=== PATIENT | male | born 1950 | race African-American/Black ===

== ENCOUNTER 2016-12-06 10:07 | Emergency (ER) | payer MEDICARE ==
[2016-12-06 10:14] VITALS: BP 137/80
[2016-12-06] MEDS ORDERED: IBUPROFEN 600 MG TABLET PO ONE (10:25)
[2016-12-06] MEDS ORDERED: GUAIFENESIN 600 MG TABLET.SA PO ONE (10:25)
[2016-12-06] MEDS ORDERED: FLUTICASONE NASAL SPRAY 50 MCG/SPRY 120 SPRAY/16 GM NASL ONE (10:25)
[2016-12-06] MEDS ORDERED: PSEUDOEPHEDRINE HCL 30 MG TABLET PO ONE (10:25)
[2016-12-06] MEDS ORDERED: LORATADINE 10 MG TABLET PO ONE (10:25)
--- NOTE | 2016-12-06 10:32 | ER Document Report ---
ED Respiratory Problem - General Chief Complaint: Congestion Stated Complaint: SINUS PROBLEM Time Seen by Provider: 12/06/16 10:17 Mode of Arrival: Ambulatory Information source: Patient Notes: 66-year-old male presents to ED for cough and cold symptoms with a nasal congestion and drainage and pressure for a week. TRAVEL OUTSIDE OF THE [place] IN LAST 30 DAYS: No - HPI Patient complains to provider of: Cough, Short of breath Onset: Last week Duration: Continuous Initiating Event: URI Quality of pain: Pressure Severity: Moderate Pain Level: 3 Cough: Nonproductive Sputum amount: None Associated symptoms: Cough - Occasional, PND, Sinus pain/pressure Similar symptoms previously: Yes Recently seen / treated by doctor: No - Related Data Allergies/Adverse Reactions: No Known Allergies Allergy (Verified 12/06/16 10:28) Past Medical History - General Information source: Patient - Social History Smoking Status: Never Smoker Cigarette use (# per day): No Chew tobacco use (# tins/day): No Smoking Education Provided: No Frequency of alcohol use: None Drug Abuse: None Occupation: Retired Lives with: Alone Family History: COPD, CVA, DM, Hyperlipidemia, Hypertension. denies: Arthritis , CAD, Malignancy, Thyroid Disfunction Patient has suicidal ideation: No Patient has homicidal ideation: No - Past Medical History Cardiac Medical History: Reports: None Pulmonary Medical History: Reports: Hx Bronchitis, Hx Pneumonia EENT Medical History: Reports: Nose Neurological Medical History: Reports: None Endocrine Medical History: Reports: None Renal/ Medical History: Reports: None Malignancy Medical History: Reports None GI Medical History: Reports: None Musculoskeltal Medical History: Reports None Skin Medical History: Reports None Psychiatric Medical History: Reports: None Traumatic Medical History: Reports: None Infectious Medical History: Reports: None Past Surgical History: Reports: Other - sinus surgery Review of Systems - Review of Systems Constitutional: No symptoms reported EENT: Nose discharge, Sinus pressure, Sinus discharge Cardiovascular: No symptoms reported Respiratory: Cough - occasional Gastrointestinal: No symptoms reported Genitourinary: No symptoms reported Male Genitourinary: No symptoms reported Musculoskeletal: No symptoms reported Skin: No symptoms reported Hematologic/Lymphatic: No symptoms reported Neurological/Psychological: No symptoms reported -: Yes All other systems reviewed and negative Physical Exam - Vital signs Vitals: Temp Pulse Resp BP Pulse Ox 97.5 F 52 L 18 137/80 H 95 12/06/16 10:12 12/06/16 10:12 12/06/16 10:12 12/06/16 10:12 12/06/16 10:12 Interpretation: Normal - General General appearance: Appears well, Alert - HEENT Head: Normocephalic, Atraumatic Eyes: Normal Pupils: PERRL Ears: Normal External canal: Normal Tympanic membrane: Normal Sinus: Frontal, Tenderness Nasal: Purulent discharge, Swelling Mouth/Lips: Normal Mucous membranes: Normal Pharynx: Post nasal drainage Neck: Normal - Respiratory Respiratory status: No respiratory distress Chest status: Nontender Breath sounds: Normal Chest palpation: Normal - Cardiovascular Rhythm: Regular Heart sounds: Normal auscultation Murmur: No - Abdominal Inspection: Normal Distension: No distension Bowel sounds: Normal Tenderness: Nontender Organomegaly: No organomegaly - Back Back: Normal, Nontender - Extremities General upper extremity: Normal inspection, Nontender, Normal color, Normal ROM , Normal temperature General lower extremity: Normal inspection, Nontender, Normal color, Normal ROM , Normal temperature, Normal weight bearing. No: Jennifer's sign - Neurological Neuro grossly intact: Yes Cognition: Normal Orientation: AAOx4 [place] Coma Scale Eye Opening: Spontaneous [place] Coma Scale Verbal: Oriented [place] Coma Scale Motor: Obeys Commands [place] Coma Scale Total: 15 Speech: Normal Motor strength normal: LUE, RUE, LLE, RLE Sensory: Normal - Psychological Associated symptoms: Normal affect, Normal mood - Skin Skin Temperature: Warm Skin Moisture: Dry Skin Color: Normal Course - Re-evaluation Re-evalutation: 12/06/16 11:21 Patient treated with Claritin and Sudafed and Mucinex and ibuprofen and Flonase. Patient instructed to see how he feels after these and use these at home. Patient given a list of what he was received to enable him to take the same medication if this helps him. Patient instructed to follow-up with primary doctor. - Vital Signs Vital signs: Temp Pulse Resp BP Pulse Ox 97.5 F 52 L 18 137/80 H 95 12/06/16 10:12 12/06/16 10:12 12/06/16 10:12 12/06/16 10:12 12/06/16 10:12 Discharge - Discharge Clinical Impression: URI (upper respiratory infection) Qualifiers: URI type: unspecified URI Qualified Code(s): J06.9 - Acute upper respiratory infection, unspecified Condition: Stable Disposition: HOME, SELF-CARE Instructions: Family Physicians / Practices Additional Instructions: UPPER RESPIRATORY ILLNESS: You have a viral infection of the respiratory passages -- a "cold." This common infection causes nasal congestion, drainage, and often sore throat and cough. It is highly contagious. The disease usually lasts about 10 to 14 days. There is no "cure" for the viral infection -- it must run its course. If there is a complication, such as bacterial infection in the nose, sinuses, middle ear, or bronchial tubes, antibiotics may be required. The antibiotics won't affect the virus. Drink plenty of fluids. A humidifier may help. An expectorant medication or decongestant may make you more comfortable. Use acetaminophen or ibuprofen for fever or aches. See the doctor if fever persists over two days, if there is any significant worsening of your symptoms, or if you simply fail to improve as expected. I gave you a list of the medications I gave you in the ed. DECONGESTANT MEDICATION: A decongestant medicine has been suggested. Often this medicine is combined in the same tablet with an antihistamine or expectorant. This type of medicine is helpful in treating a bad cold or sinus condition, as well as in treatment of the nasal congestion of hay fever. It is not of much benefit for lung infections. Decongestant medicines are related to stimulants. They can cause an increase in blood pressure and heart rate. Persons with heart disease and high blood pressure should not take decongestants without discussing this with the physician. If you develop palpitations, chest pain, headache, or tremors, stop the medicine and consult your physician. COUGH-SUPPRESSANT & EXPECTORANT MEDICATION: You are to use a cough medication as needed for relief of symptoms. This medicine is a combination of an expectorant (to make the mucous thinner and more easily "coughed up") and a cough suppressant (to reduce the frequency of coughing). The cough-suppressant medicine is related to narcotics. You may experience mild nausea and sleepiness. Some patients who are very sensitive to narcotics may have stomach pain from this medicine. Taking the medicine with food reduces these side effects. Do not drive or work with machinery until you know how this medicine affects you. The expectorant should have no side effects. Iodine-containing expectorants (such as organidin) should not be taken by persons with active thyroid disease unless approved by your doctor. Call the doctor if you develop shortness of breath, hives, rash, itching, lightheadedness, or severe nausea and vomiting. USE OF ACETAMINOPHEN (Tylenol): Acetaminophen may be taken for pain relief or fever control. It's much safer than aspirin, offering a wider range of "safe" dosages. It is safe during . Some brand names are Tylenol, Panadol, Datril, Anacin 3, Tempra, and Liquiprin. Acetaminophen can be repeated every four hours. The following are maximum recommended dosages: >89 pounds or adults 650 mg to 900 mg Acetaminophen can be repeated every four hours. Maximum dose not to exceed 4000 mg a day. FOLLOW-UP CARE: If you have been referred to a physician for follow-up care, call the physician s office for an appointment as you were instructed or within the next two days. If you experience worsening or a significant change in your symptoms, notify the physician immediately or return to the Emergency Department at any time for re-evaluation. Forms: Elevated Blood Pressure
== END 2016-12-06 11:00 | disposition home or self-care (01) ==
LOC: ER 10:07
DX: J06.9 Acute upper respiratory infection, unspecified (principal); R05 Cough; R09.81 Nasal congestion; R09.82 Postnasal drip; Z87.01 Personal history of pneumonia (recurrent)
CPT/HCPCS: 99283; A9270 ×5

== ENCOUNTER 2016-12-09 03:21 | Emergency (ER) | payer SELFPAY ==
[2016-12-09] MEDS ORDERED: AMOXICILLIN TR/POT CLAVULANATE 500-125 MG TAB PO ONE (04:15)
[2016-12-09] MEDS ORDERED: AMOXICILLIN TRIHYDRATE 500 MG CAPSULE PO ONE (04:16)
--- NOTE | 2016-12-09 04:19 | ER Document Report ---
HPI - HPI Patient complains to provider of: sinus congestion Pain Level: Denies Context: Patient is a 66 year old male that reports a week of worsening cold symptoms and now progressive sinus congestion and sinus pressure. He denies fever, cough , shortness of breath. He reports a sore throat. He states he gets an annual sinus infection and usually requires antibiotics. Already on claratin, flonase. Denies any daily medications or known medical problems other than sinus surgery many years ago. - DERM Skin Color: Normal Past Medical History - General Information source: Patient - Social History Smoking Status: Never Smoker Frequency of alcohol use: None Drug Abuse: None Lives with: Family Family History: COPD, CVA, DM, Hyperlipidemia, Hypertension. denies: Arthritis , CAD, Malignancy, Thyroid Disfunction Patient has suicidal ideation: No Patient has homicidal ideation: No Pulmonary Medical History: Reports: Hx Bronchitis, Hx Pneumonia Renal/ Medical History: Denies: Hx Peritoneal Dialysis Past Surgical History: Reports: Other - sinus surgery - Immunizations Immunizations up to date: Yes Hx Diphtheria, Pertussis, Tetanus Vaccination: Yes Vertical Provider Document - CONSTITUTIONAL General Appearance: WD/WN, No Apparent Distress - INFECTION CONTROL TRAVEL OUTSIDE OF THE [place] IN LAST 30 DAYS: No - HEENT HEENT: Atraumatic, Normocephalic. negative: Normal ENT Exam - Sinus congestion , minimal maxillary sinus tenderness, congested nasal passages, very mildly erythematous throat, unremarkable ENT exam otherwise - NECK Neck: Normal Inspection - RESPIRATORY Respiratory: Breath Sounds Normal, No Respiratory Distress O2 Sat by Pulse Oximetry: 95 - CARDIOVASCULAR Cardiovascular: Regular Rate, Regular Rhythm - GI/ABDOMEN Gastrointestinal: Abdomen Soft, Abdomen Non-Tender - MUSCULOSKELETAL/EXTREMETIES Musculoskeletal/Extremeties: MAEW, FROM, Non-Tender - NEURO Level of Consciousness: Awake, Alert, Appropriate - DERM Integumentary: Warm, Dry, No Rash Course - Re-evaluation Re-evalutation: Patient with minimal sinus tenderness. He is well-appearing, sounds congested, has clear lungs, conversational and making jokes. Mildly hypertensive, improved on repeat. No fever, no concerning deficits or signs of distress. - Vital Signs Vital signs: Temp Pulse Resp BP Pulse Ox 97.4 F 59 L 22 H 178/87 H 95 12/09/16 03:23 12/09/16 03:23 12/09/16 03:23 12/09/16 03:23 12/09/16 03:23 Discharge - Discharge Clinical Impression: Sinus pressure, Sinus congestion Pharyngitis Qualifiers: Pharyngitis/tonsillitis etiology: unspecified etiology Qualified Code(s): J02.9 - Acute pharyngitis, unspecified Condition: Stable Disposition: HOME, SELF-CARE Additional Instructions: Your examination is consistent with a sinus infection. Take Augmentin antibiotic as directed. I also recommend continuing your Claritin and/or Flonase. Follow-up with primary care for additional management. Return to the emergency department for any concerning or worsening symptoms including headache , fever, vomiting, difficulty breathing, or any other concerning symptoms. Prescriptions: Amox Tr/Potassium Clavulanate [Augmentin 875-125 Tablet] 1 tab PO BID 7 Days tablet Referrals: CHITO GUAJARDO MD [Primary Care Provider] - Follow up as needed
[2016-12-09 04:46] VITALS: BP 148/92
== END 2016-12-09 04:25 | disposition home or self-care (01) ==
LOC: ER 03:21
DX: R09.81 Nasal congestion (principal); J02.9 Acute pharyngitis, unspecified; Z98.890 Other specified postprocedural states
CPT/HCPCS: 99283

== ENCOUNTER 2016-12-15 03:11 | Emergency (ER) | payer SELFPAY ==
[2016-12-15 03:20] VITALS: BP 145/82
--- NOTE | 2016-12-15 03:28 | ER Document Report ---
HPI - HPI Patient complains to provider of: clogged nose Onset: Other - 3 weeks Onset/Duration: Persistent, Worse Pain Level: 3 Context: 66-year-old non-smoker is complaining of nasal congestion and aguilar sinus pain for 3 weeks with sore throat. When he blows his nose green mucus comes out. He was given Augmentin on the and Flonase. He thought the Augmentin was helping to begin with. He had previous ENT surgery for the same problem about 10 years ago. No chest pain or shortness of breath. No fever. He came into the emergency room because he is unable to sleep because of the clogged nose. He does not snort any drugs up his nose. Associated Symptoms: None Exacerbated by: Denies Relieved by: Denies Similar symptoms previously: Yes Recently seen / treated by doctor: Yes - ROS ROS below otherwise negative: Yes Systems Reviewed and Negative: Yes All other systems reviewed and negative - DERM Skin Color: Normal Past Medical History - General Information source: Patient - Social History Smoking Status: Never Smoker Frequency of alcohol use: None Drug Abuse: None Lives with: Family Family History: COPD, CVA, DM, Hyperlipidemia, Hypertension Patient has suicidal ideation: No Patient has homicidal ideation: No Pulmonary Medical History: Reports: Hx Bronchitis, Hx Pneumonia, Other - sinsutitis requiring surgery Renal/ Medical History: Denies: Hx Peritoneal Dialysis Past Surgical History: Reports: Other - sinus surgery - Immunizations Immunizations up to date: Yes Hx Diphtheria, Pertussis, Tetanus Vaccination: Yes Vertical Provider Document - CONSTITUTIONAL Agree With Documented VS: Yes Exam Limitations: No Limitations General Appearance: No Apparent Distress - INFECTION CONTROL TRAVEL OUTSIDE OF THE [place] IN LAST 30 DAYS: No - HEENT HEENT: Normocephalic. negative: Pharyngeal Erythema, Tympanic Membrane Red Notes: boggy inflamed nares with mucoid drainage - NECK Neck: Supple. negative: Lymphadenopathy-Left, Lymphadenopathy-Right - RESPIRATORY Respiratory: Breath Sounds Normal, No Respiratory Distress O2 Sat by Pulse Oximetry: 100 - CARDIOVASCULAR Cardiovascular: Regular Rate, Regular Rhythm - NEURO Level of Consciousness: Awake, Alert, Appropriate - DERM Integumentary: Warm, Dry, No Rash Course - Vital Signs Vital signs: Temp Pulse Resp BP Pulse Ox 98.2 F 50 L 16 145/82 H 100 12/15/16 03:17 12/15/16 03:17 12/15/16 03:17 12/15/16 03:17 12/15/16 03:17 Discharge - Discharge Clinical Impression: Chronic sinusitis Qualifiers: Sinusitis location: unspecified location Qualified Code(s): J32.9 - Chronic sinusitis, unspecified Condition: Good Disposition: HOME, SELF-CARE Instructions: Augmentin ([facility]), ENT, Sinusitis ([facility]) Additional Instructions: you need to call the Ears Nose and Throat doctor for appointment for this chronic sinus infection. warm compress over the counter nasal decongestant for 2 days only, after you use it, THEN use a saline nasal spray to clear the mucous twice a day, and lastly use the flonase. to er any concerns Prescriptions: Amoxicillin/Potassium Clav [Augmentin 875-125 Tablet] 1 each PO BID 10 Days tablet Referrals: CHITO GUAJARDO MD [Primary Care Provider] - Follow up as needed
[2016-12-15] MEDS ORDERED: AMOXICILLIN TR/POT CLAVULANATE 500-125 MG TAB PO ONE (03:31)
[2016-12-15] MEDS ORDERED: AMOXICILLIN TRIHYDRATE 500 MG CAPSULE PO ONE (03:31)
== END 2016-12-15 03:44 | disposition home or self-care (01) ==
LOC: ER 03:11
DX: J32.9 Chronic sinusitis, unspecified (principal); R09.81 Nasal congestion; R51 Headache; J02.9 Acute pharyngitis, unspecified
CPT/HCPCS: 87070; 87880; 99283